=== PATIENT | female | born 1975 | race Caucasian/White ===

== ENCOUNTER 2018-09-14 18:39 | Emergency (ER) | payer MEDICARE, MEDICAID ==
[~2018-09-14] VITALS: Ht 167.6 cm; Wt 125.9 kg
[2018-09-14] MEDS ORDERED: LITHIUM CARB300 MG PO (19:34)
[2018-09-14] MEDS ORDERED: ZOFRAN4 MG/TAB PO (19:34)
[2018-09-14] MEDS ORDERED: LISINOP/HCTZ1 TAB PO (19:44)
[2018-09-14] MEDS ORDERED: LEVOTHYROXIN100 MCG PO (19:44)
[2018-09-14] MEDS ORDERED: CLONAZEPAM1 MG PO (19:46)
[2018-09-14] MEDS ORDERED: CELEXA20 MG PO (19:47)
[2018-09-14] MEDS ORDERED: DICLOFENAC SODI75 MG PO (19:48)
[2018-09-14] MEDS ORDERED: PEPCID20 MG PO (19:49)
[2018-09-14] MEDS ORDERED: SIMVASTATIN20 MG PO (19:49)
[2018-09-14] MEDS ORDERED: QUETIAPINE FUM400 M1 PO (19:50)
[2018-09-14] MEDS ORDERED: MECLIZINE25 MG PO (19:51)
[2018-09-14 20:08] LABS: HEMATOCRIT 44.3 % (37.0-47.0); HEMOGLOBIN 14.1 g/dl (12.0-16.0); IMMATURE GRANULOCYTES 0.5 % (0.0-5.0); MEAN CELL VOLUME 92.3 fL CALC (80.0-100.0); MEAN CORPUSCULAR HGB 29.4 pG CALC (26.0-32.0); MEAN CORPUSCULAR HGB CONC 31.8 g/L CALC (32.0-36.0); NEUT# 11.12 thou/uL (2.00-7.15); RED BLOOD COUNT 4.8 mill/uL (4.20-5.60); RED CELL DISTRI WIDTH 13.3 % (11.5-15.5)
[2018-09-14 20:10] LABS: URINE BILIRUBIN - DIPSTICK NEGATIVE (NEGATIVE); URINE BLOOD DIPSTICK NEGATIVE (NEGATIVE); URINE COLOR YELLOW; URINE GLUCOSE - DIPSTICK NEGATIVE (NEGATIVE); URINE KETONE NEGATIVE (NEGATIVE); URINE LEUK ESTERASE NEGATIVE (NEGATIVE); URINE NITRITE - DIPSTICK NEGATIVE (Negative); URINE PROTEIN - DIPSTICK NEGATIVE (NEG-TRACE); URINE SPECIFIC GRAVITY 1.025; URINE UROBILINOGEN - DIPSTICK 0.2 E.U./dL (0.2)
[2018-09-14 20:22] LABS: ALBUMIN 4.5 g/dL (3.2-5.0); BILIRUBIN, TOTAL 0.5 mg/dL (0.0-1.4); CREATININE 1.2 mg/dL (0.5-1.0); POTASSIUM 4.7 mmol/l (3.5-5.1)
[2018-09-14] MEDS ORDERED: PHENERGAN25 MG/TAB PO (21:33)
[2018-09-14] MEDS ORDERED: LOMOTIL2.5 MG PO (21:33)
[2018-09-14 22:06] VITALS: BP 110/64
== END 2018-09-14 22:04 | disposition home or self-care (01) ==
LOC: ED 18:39
PROVIDERS: Family Medicine
DX: K52.9 Noninfective gastroenteritis and colitis, unspecified (principal); R11.2 Nausea with vomiting, unspecified; R10.84 Generalized abdominal pain; R19.7 Diarrhea, unspecified; I10 Essential (primary) hypertension